=== PATIENT | male | born 1970 | race Caucasian/White ===

== ENCOUNTER 2017-06-01 15:32 | Emergency (ER) | payer OTHER ==
[~2017-06-01] VITALS: Ht 170.2 cm; Wt 61.3 kg
[2017-06-01 17:16] LABS: HEMATOCRIT 45.3 % (38.0-50.0); MCH 31.7 PG (29.0-34.0); MCHC 34.7 G/DL (30.0-36.0); MCV 91.3 FL (86-99); MEAN PLAT.VOLUME 9.7 uM^3 (9.0-12.4); PLATELET COUNT 237 K/uL (156-360); RBC DIS.WIDTH-CV 13.1 % (11.8-14.6); RBC DIS.WIDTH-SD 44.1 % (39-53); RED BLOOD COUNT 4.96 M/uL (4.00-5.50); WHITE BLOOD COUNT 9.6 K/uL (4.1-10.2)
[2017-06-01 17:25] LABS: CHLORIDE 103 mEq/L (99-109); POTASSIUM 3.8 mEq/L (3.7-5.4); SODIUM 137 mEq/L (136-147)
[2017-06-01 17:26] LABS: GLUCOSE 123 mg/dL (70-99)
[2017-06-01 17:28] LABS: ANION GAP 9 MEQ/L (2-14)
[2017-06-01 17:31] LABS: UREA NITROGEN (BUN) 6 mg/dL (9-23)
[2017-06-01 17:34] LABS: GFR ESTIMATE (CALCULATED) > 59 mL/min/
[2017-06-01 20:03] VITALS: BP 112/75
== END 2017-06-01 20:07 | disposition home or self-care (01) ==
LOC: EME 15:32
DX: R55 Syncope and collapse (principal); F17.200 Nicotine dependence, unspecified, uncomplicated; Y99.0 Civilian activity done for income or pay; Y93.89 Activity, other specified; Y92.812 Truck as the place of occurrence of the external cause
CPT/HCPCS: 70450; 71020; 80048; 85027; 93005; 99281; 99285